=== PATIENT | female | born 1980 | race Caucasian/White ===

== ENCOUNTER 2016-10-25 13:54 | Emergency (ER) | payer MEDICAID ==
[~2016-10-25] VITALS: Ht 162.6 cm; Wt 65.0 kg
[~2016-10-25 13:54] MED LIST: PREN-39 PO
[2016-10-25 14:03] VITALS: Ht 162.6 cm; Wt 65.0 kg
--- NOTE | 2016-10-25 17:12 | ERD ---
ER Documentation Chief Complaint Date/Time DATE: 10/25/16 TIME: 17:09 Chief Complaint SENT BY OB 12 WEEKS ,UNABLE TO DETECT FHT HPI This is a 36-year-old female presenting to the emergency department for evaluation of . Patient was seen in her OB physician's office today and physician was unable to detect heart tones. Patient was told to go to the emergency room to have an ultrasound. Denies pelvic cramping or vaginal bleeding. Last menstrual period 07/03/16. A0. No dysuria or hematuria. No headache, nausea or vomiting. ROS All systems reviewed and are negative except as per history of present illness. Medications Home Meds Reported Medications Vits W-Ca,Fe,Fa(<1MG) ( Vitamins) 1 Tab Tablet, 1 TAB PO DAILY 04/18/12 Allergies Allergies: Coded Allergies: No Known Allergy (Verified Allergy, Mild, NONE, 11/20/08) PMhx/Soc History of Surgery: No Anesthesia Reaction: No Hx Neurological Disorder: No Hx Respiratory Disorders: No Hx Cardiac Disorders: No Hx Psychiatric Problems: No Hx Miscellaneous Medical Probl: No Hx Alcohol Use: No Hx Substance Use: No Hx Tobacco Use: No Physical Exam Vitals Vital Signs Date Time Temp Pulse Resp B/P Pulse Ox O2 Delivery O2 Flow Rate FiO2 10/25/16 18:48 98.2 75 18 114/60 98 Room Air 10/25/16 14:03 98.0 92 18 109/67 98 Physical Exam Const: No acute distress, alert Head: Atraumatic Eyes: Normal Conjunctiva ENT: Normal External Ears, Nose and Mouth. Neck: Full range of motion..~ No meningismus. Resp: Clear to auscultation bilaterally Cardio: Regular rate and rhythm, no murmurs Abd: Soft, non tender, non distended. Normal bowel sounds Skin: No petechiae or rashes Back: No midline or flank tenderness Ext: No cyanosis, or edema Neur: Awake and alert Psych: Normal Mood and Affect Result Diagram: 10/25/16 1100 Results 24 hrs Laboratory Tests Test 10/25/16 17:07 10/25/16 17:30 10/25/16 17:33 Basophils # 0.010^3/ul Basophils % 0.3% Beta HCG, Quantitative 433942.0mIU/ml Eosinophils # 0.110^3/ul Eosinophils % 1.5% Hematocrit 37.8% Hemoglobin 12.7g/dl Lymphocytes # 2.410^3/ul Lymphocytes % 25.0% Mean Corpuscular Hemoglobin 30.9pg Mean Corpuscular Hemoglobin Concent 33.7g/dl Mean Corpuscular Volume 91.8fl Mean Platelet Volume 8.7fl Monocytes # 0.710^3/ul Monocytes % 7.3% Neutrophils # 6.310^3/ul Neutrophils % 65.9% Nucleated Red Blood Cells # 0.010^3/ul Nucleated Red Blood Cells % 0.0/100WBC Platelet Count 02479^3/UL Red Blood Count 4.1210^6/ul Red Cell Distribution Width 13.2% White Blood Count 9.510^3/ul Bedside Urine Blood Negative Negative Bedside Urine Glucose (UA) Negative Negative Bedside Urine Ketones (LAB) Negative Negative Bedside Urine Leukocyte Esterase (L Negative Negative Bedside Urine Nitrite (LAB) Negative Negative Bedside Urine Protein (LAB) Negative Negative Bedside Urine pH (LAB) 7.0 7.0 Procedures/MDM ED COURSE: The patient was stable throughout ED course. I kept the patient and/or family informed of laboratory and diagnostic imaging results throughout the ED course. Laboratory CBC no significant anemia Beta-hCG 103,870 Type and Rh factor O+ urine dip negative Imaging OB ultrasound Patient: SANGITA DU : 1980 Age: 36 Sex: F MR #: [id number] DOS: 10/25/16 1652 Ordering MD: NEHA LAMBERT NP Location: [facility] Room/Bed: PROCEDURE: OBSTETRICAL ULTRASOUND WITH ENDOVAGINAL IMAGES CLINICAL INDICATION: Vaginal Bleed (), check heart rate TECHNIQUE: Multiple sonographic images of the pelvis were obtained utilizing a transabdominal and endovaginal technique. The images were reviewed on a PACS workstation. COMPARISON: None. LMP: 08/03/2016 FINDINGS: There is a single live intrauterine with heart rate of 179 beats per minute, mean sac diameter of 5.71 cm, and crown-rump length of 5.29 cm which is consistent with a gestational age of 12 weeks, 2 days . The estimated date of delivery by ultrasound is 05/07/2017 . The estimated gestational age by LMP is 11 weeks, 6 days . The estimated date of delivery by LMP is 05/10/2017 . The placenta is posterior. There is no evidence of a placental abruption or placenta previa. Bilateral ovaries are not visualized. There are no abnormal adnexal masses. No significant pelvic free fluid is identified. IMPRESSION: Single live intrauterine consistent with a gestational age of 12 weeks , 2 days . The estimated date of delivery is 05/07/2017 . Dating by ultrasound is within 3 days of dating by LMP. Bilateral ovaries are not visualized. There are no abnormal adnexal masses. MDM: This is a 36-year-old female presenting to the emergency department for evaluation of . Patient was sent by her OB physician because physician was unable to detect heart tones in office today. Patient denies any pelvic cramping or vaginal bleeding. Labs are unremarkable. Beta- hCG is 108,370. Urine is negative for infection. OB ultrasound reviewed by radiologist as single live intrauterine consistent with a gestational age of 12 weeks, 2 days . The estimated date of delivery is 05/07/2017 . Dating by ultrasound is within 3 days of dating by LMP. Bilateral ovaries are not visualized. There are no abnormal adnexal masses. Patient remains calm and comfortable throughout ED visit. Hemodynamically stable. Diagnosis is . Patient is appropriate for outpatient management. Instructed patient to follow- up with [facility] in the next 1-2 days for reassessment and additional management. Return to ED for any high fever, chest pain, difficulty breathing, shortness breath, wheezing, vomiting, diarrhea, abdominal pain or any new or worsening symptoms. Patient verbalizes understanding. All questions answered at discharge. Departure Diagnosis: Primary Impression: Weeks of gestation: 12 weeks Qualified Code: Z3A.12 - 12 weeks gestation of Condition: Stable NEHA LAMBERT NP Oct 25, 2016 17:12
[2016-10-25 17:24] LABS: BASOPHILS % 0.3 % (0.0-2.0); EOSINOPHILS # 0.1 10^3/ul (0.0-0.5); EOSINOPHILS % 1.5 % (0.0-7.0); HEMATOCRIT 37.8 % (37.0-47.0); HEMOGLOBIN 12.7 g/dl (12.0-16.0); LYMPHOCYTES # 2.4 10^3/ul (0.8-2.9); MEAN CORPUSCULAR HEMOGLOBIN 30.9 pg (29.0-33.0); MEAN CORPUSCULAR HGB CONC 33.7 g/dl (32.0-37.0); MEAN CORPUSCULAR VOLUME 91.8 fl (82.0-101.0); MEAN PLATELET VOLUME 8.7 fl (7.4-10.4); MONOCYTE # 0.7 10^3/ul (0.3-0.9); MONOCYTES % 7.3 % (0.0-11.0); NEUTROPHIL # 6.3 10^3/ul (1.6-7.5); NEUTROPHILS % 65.9 % (39.0-77.0); PLATELET COUNT 296 10^3/UL (140-440); RED BLOOD COUNT 4.12 10^6/ul (4.20-5.40); RED CELL DISTRIBUTION WIDTH 13.2 % (11.5-14.5); UNCORRECTED WBC 9.5 10^3/ul (4.8-10.8); WHITE BLOOD COUNT 9.5 10^3/ul (4.8-10.8)
[2016-10-25 17:25] LABS: CONDITION 1
[2016-10-25 17:29] LABS: URINE BLOOD (Dip) POC Negative (NEGATIVE)
[2016-10-25 17:32] LABS: URINE BLOOD (Dip) POC Negative (NEGATIVE)
--- NOTE | 2016-10-25 17:55 | RADRPT ---
PROCEDURE: OBSTETRICAL ULTRASOUND WITH ENDOVAGINAL IMAGES CLINICAL INDICATION: Vaginal Bleed (), check heart rate TECHNIQUE: Multiple sonographic images of the pelvis were obtained utilizing a transabdominal and endovaginal technique. The images were reviewed on a PACS workstation. COMPARISON: None. LMP: 08/03/2016 FINDINGS: There is a single live intrauterine with heart rate of 179 beats per minute, mean sa c diameter of 5.71 cm, and crown-rump length of 5.29 cm which is consistent with a gestational age o f 12 weeks, 2 days . The estimated date of delivery by ultrasound is 05/07/2017 . The estimated gestational age by LMP is 11 weeks, 6 days . The estimated date of delivery by LMP is 05/10/2017 . The placenta is posterior. There is no evidence of a placental abruption or placenta previa. Bilateral ovaries are not visualized. There are no abnormal adnexal masses. No significant pelvic free fluid is identified. IMPRESSION: Single live intrauterine consistent with a gestational age of 12 weeks, 2 days . The estimated date of delivery is 05/07/2017 . Dating by ultrasound is within 3 days of dating by LMP. Bilateral ovaries are not visualized. There are no abnormal adnexal masses. RPTAT: EE Physician Kiki Date Time Electronically viewed and signed by Physician Kiki on 10/25/2016 17:54 KVNG
[2016-10-25 18:48] VITALS: BP 114/60; PULSE 75; RESP 18; TEMP 98.2
== END 2016-10-25 18:41 | disposition home or self-care (01) ==
LOC: FTE 13:54
DX: Z34.91 Encounter for supervision of normal pregnancy, unspecified, first trimester (principal); Z3A.12 12 weeks gestation of pregnancy
CPT/HCPCS: 36415; 76801; 81003; 84702; 85025; 86900; 86901

== ENCOUNTER 2017-04-26 15:00 | Outpatient (CLI) | payer MEDICAID ==
[~2017-04-26] VITALS: Ht 154.9 cm; Wt 70.0 kg
[2017-04-26 15:55] VITALS: Ht 154.9 cm; Wt 70.0 kg
[2017-04-26 15:56] VITALS: BP 107/58; PULSE 71; RESP 18
--- NOTE | 2017-04-26 16:28 | RADRPT ---
PROCEDURE: OB ultrasound for biophysical profile CLINICAL INDICATION: labor TECHNIQUE: Multiple sonographic images of the pelvis were obtained. Transabdominal view of the gr avid uterus are available for review. The images were reviewed on a PACS workstation. COMPARISON: None FINDINGS: breathing movement = 2/2 tone = 2/2 motion = 2/2 JEN = 2/2 JEN = 17.6 cm Single live intrauterine with cardiac activity. heart rate equals 152 beats p er minute. Presentation is cephalic. The placenta is posterior fundal. IMPRESSION: 1. Single viable intrauterine gestation. 2. Biophysical profile = 8. 3. JEN = 17.6 cm. RPTAT: KK .Tonny Henriquez MD, MD Date Time Electronically viewed and signed by .Tonny Henriquez MD, MD on 04/26/2017 16:27 .B/
--- NOTE | 2017-04-26 16:29 | RADRPT ---
PROCEDURE: US OB - Limited weight. CLINICAL INDICATION: labor TECHNIQUE: Multiple sonographic images of the pelvis were obtained. Transabdominal imaging only w as performed. The images were reviewed on a PACS workstation. COMPARISON: No prior studies are available for comparison. FINDINGS: There is a single viable intrauterine gestation. Cardiac activity is present with 157 beats per min miryam. There is a cephalic presentation. Measurements were made in order to determine age. The results are as follows: BPD = 8.67 cm HC = 31.99 cm AC = 32.23 cm FL = 7.20 .cm Estimated gestational age of approximately 36 weeks 2 days +/ - 2 weeks 4 days by ultrasound evalua tion The estimated date of delivery is 05/22/2017 by ultrasound evaluation. The EFW = 3007 g +/- 451 g. The placenta is posterior fundal. IMPRESSION: 1. Single viable intrauterine gestation of approximately 36 weeks 2 days with estimated date of [place] of 05/22/2017 by ultrasound evaluation. 2. The estimated weight is 3007 g (29%) . RPTAT: KK .Tonny Henriquez MD, MD Date Time Electronically viewed and signed by .Tonny Henriquez MD, MD on 04/26/2017 16:29 .B/
[2017-04-26] MEDS ORDERED: GLYB1.252 PO (17:00)
--- NOTE | 2017-04-26 17:10 | CONS ---
Date/Time of Note Date/Time of Note DATE: 04/26/17 TIME: 17:00 Consultation Date/Type/Reason Admit Date/Time April 26, 2017 OB triage consult Reason for Consultation This patient is a 37 years old 3 para 3 who had all her 3 children by section. She came to the triage area to rule out labor she is a gestational diabetes mellitus controlled by diet as well as medication she is on glyburide 1.5 mg per day her lab works were so full normal blood type O Rh+ hepatitis B surface antigen and HIV RPR GBS chlamydia and gonorrhea were all negative on examination she is a well-developed well-nourished lady near term. Very irregular and scattered contraction. heart tone is normal On general examination her vital signs are normal with blood pressure of 107/58 pulse rate of 71 respiration 18 temperature 98.7,,,. heartbeats were around 140 bpm we did a pelvic examination the cervix was closed thick and head was high membranes were intact Constitutional: No chills, No diaphoresis, No disoriented, No febrile, No improved, No no complaints, No other, No poor po, No requiring IVF, No requiring O2 ENT: No bleeding, No congestion, No discharge, No dysphagia, No no complaints, No other, No pain, No sore throat Respiratory: No cough, No no complaints, No other, No pain, No pleuritic pain, No shortness of breath, No sputum, No wheezing Cardiovascular: No chest pain, No edema, No lightheadedness, No no complaints, No orthopenea, No other, No palpitations, No paroxysmal nocturnal dyspnea Gastrointestinal: No blood, No constipation, No decreased appetite, No diarrhea , No flatus, No nausea, No no complaints, No other, No pain, No passing stool, No vomiting Genitourinary: hematuria (As I mentioned the cervix was basically closed no sign of labor), No bleeding, No discharge, No dysuria, No flank pain, No no complaints, No other Musculoskeletal: No back pain, No bone/joint pain, No neck pain, No no complaints, No other, No restricted range of motion, No swelling Skin: No bruising, No erythema, No laceration, No no complaints, No other, No pruritis, No rash, No skin lesions Neurologic: other (Knee-jerk reflexes normal), No confusion, No dizziness, No focal-weakness, No headache, No no complaints , No seizure, No syncope Endocrine: No dry skin, No no complaints, No other, No polydypsia, No polyuria , No temp intolerance Additional Comments On ultrasound study the report is single live intrauterine with heart rate of 152/min vertex presentation placenta was fundal her biophysical 4 was reported 05/03 amniotic fluid index was reported to 17.6 cm estimated weight was 3007 g 451 g which placed her at 29% Disposition. These finding patient was discharged home to continue doing kick count and to return to clinic for follow-up she will undergo a section a week later.' She is advised to return to labor delivery room with triage area in case of contractions bleeding or rupture of the membrane Social History Smoking Status: Never smoker Exam/Review of Systems Vital Signs Vitals Vital Signs Date Time Temp Pulse Resp B/P Pulse Ox O2 Delivery O2 Flow Rate FiO2 04/26/17 15:56 98.7 71 18 107/58 Room Air BROOKLYN HUDSON MD Apr 26, 2017 17:10
--- NOTE | 2017-04-26 17:30 | TRIAGE ---
OB Triage Datetime Report Generated by CPN: 04/26/2017 17:30 Datetime: 04/26/2017 16:22 Heart Rate Comments: "PT STATES THE BABY IS MOVING ALOT " Datetime: 04/26/2017 16:19 Time of Arrival: 04/26/2017 14:46 EGA: 38.0 Arrived By: Ambulatory Arrived From: Home Chief Complaint: R/O LABOR PREV C/S X3 Movement: Present Contractions: Irregular Rupture of Membranes: Denies Vaginal Bleeding: None Vaginal Discharge: Denies Recent Sexual Intercouse: Denies Abdominal Trauma: Not Applicable Time Provider Notified: 04/26/2017 16:00 Provider Notified: GHAYOORI Initial Plan: NST Datetime: 04/26/2017 16:13 Assessment Type: Triage Maternal Assessment Level of Consciousness: Fully Conscious DTR's/Clonus: DTRs 2+; No Clonus Headache: Denies Blurred Vision: No Respiratory Effort: Unlabored; Regular Rhythm; Equal Expansion Breath Sounds, Left: Clear and Equal Breath Sounds, Right: Clear and Equal Nausea/Vomiting: Denies RUQ Epigastric Pain: Denies Lower Extremities Edema: None Degree: None Upper Extremities Edema: None Degree: None Facial Edema: None Fall Risk Assessment History of Falling: (0) No Secondary Diagnosis: (0) No Ambulatory Aid: (0) Bedrest/Nurse Assist IV Therapy: (0) No Gait: (0) Normal/Bedrest/Immobile Mental Status: (0) Oriented to Own Ability Fall Score: 0 Fall Risk Score Definition: No Risk: No action required Datetime: 04/26/2017 16:00 Stage of : OB Triage Assessment Type: Triage Maternal Assessment Level of Consciousness: Fully Conscious DTR's/Clonus: DTRs 2+; No Clonus Headache: Denies Blurred Vision: No Respiratory Effort: Unlabored; Regular Rhythm; Equal Expansion Breath Sounds, Left: Clear and Equal Breath Sounds, Right: Clear and Equal Nausea/Vomiting: Denies RUQ Epigastric Pain: Denies Lower Extremities Edema: None Degree: None Upper Extremities Edema: None Degree: None Facial Edema: None Temperature Route: Axillary Fall Risk Assessment History of Falling: (0) No Secondary Diagnosis: (0) No Ambulatory Aid: (0) Bedrest/Nurse Assist IV Therapy: (0) No Gait: (0) Normal/Bedrest/Immobile Mental Status: (0) Oriented to Own Ability Fall Score: 0 Fall Risk Score Definition: No Risk: No action required Pain Assessment Pain Scale: 5 Pain Presence: Intermittent Pain Type: Contraction Pain Location: Abdomen; Back Pain Goal: 2 Pain Relief Measures: Comfort Measures Pain Assessment Comments: Vaginal Exam Dilatation (cms): 0.0 Effacement (%): 0 Station: -3 Exam By: ogbodu Membrane Status: Intact Datetime: 04/26/2017 15:58 Heart Rate Comments: ultrasound at the bedside
== END 2017-04-26 17:00 | disposition home or self-care (01) ==
LOC: OBT 15:00 → L-D 15:04 → OBT 17:00
PROVIDERS: ATTEND Obstetrics & Gynecology
DX: O24.410 Gestational diabetes mellitus in pregnancy, diet controlled (principal); O09.523 Supervision of elderly multigravida, third trimester; Z3A.38 38 weeks gestation of pregnancy; O34.219 Maternal care for unspecified type scar from previous cesarean delivery
CPT/HCPCS: 76815; 76818; Z7500; G0463

== ENCOUNTER 2017-05-02 12:31 | Inpatient (IN) | payer MEDICAID ==
[~2017-05-02] VITALS: Ht 152.4 cm; Wt 68.6 kg
[~2017-05-02 12:31] MED LIST changes: +GLYB1.252 PO
[2017-05-02 13:11] VITALS: Ht 152.4 cm; Wt 68.6 kg
[2017-05-02 13:12] VITALS: BP 102/56; PULSE 70; RESP 18
[2017-05-02] MEDS ORDERED: LACTATED RINGER'S 1,000 ML IV SCH (13:20)
[2017-05-02] MEDS ORDERED: OXYTOCIN 30 UNITS/LR 500 ML IV SCH ×2 (13:30)
[2017-05-02] MEDS ORDERED: OXYTOCIN 30 UNITS/LR 500 ML IV PRN ×2 (13:30→21:30)
[2017-05-02] MEDS ORDERED: CARBOPROST 250 MCG INJ IM PRN ×2 (13:30→21:30)
[2017-05-02] MEDS ORDERED: MISOPROSTOL 200 MCG TAB PR PRN ×2 (13:30→21:30)
[2017-05-02] MEDS ORDERED: LIDOCAINE 1% (MPF) 30 ML INJ INJ PRN (13:30)
[2017-05-02] MEDS ORDERED: METHYLERGONOVINE 0.2 MG INJ IM PRN ×2 (13:30→21:30)
[2017-05-02] MEDS ORDERED: CEFAZOLIN 2 GM/50 ML (PMX) 50 ML IVPB ONE (13:30)
[2017-05-02 13:52] LABS: BASOPHILS % 0.1 % (0.0-2.0); EOSINOPHILS % 0.4 % (0.0-7.0); HEMATOCRIT 33.3 % (37.0-47.0); HEMOGLOBIN 11.7 g/dl (12.0-16.0); LYMPHOCYTES # 1.8 10^3/ul (0.8-2.9); LYMPHOCYTES % 22.7 % (15.0-51.0); MEAN CORPUSCULAR HEMOGLOBIN 32.4 pg (29.0-33.0); MEAN CORPUSCULAR HGB CONC 35.1 g/dl (32.0-37.0); MEAN CORPUSCULAR VOLUME 92.2 fl (82.0-101.0); MONOCYTE # 0.5 10^3/ul (0.3-0.9); MONOCYTES % 6.1 % (0.0-11.0); NEUTROPHIL # 5.5 10^3/ul (1.6-7.5); NEUTROPHILS % 69.9 % (39.0-77.0); PLATELET COUNT 209 10^3/UL (140-415); RED BLOOD COUNT 3.61 10^6/ul (4.20-5.40); RED CELL DISTRIBUTION WIDTH 13.1 % (11.5-14.5); WHITE BLOOD COUNT 7.9 10^3/ul (4.8-10.8)
[2017-05-02] MEDS ORDERED: LACTATED RINGER'S 1,000 ML IV PRN (14:00)
[2017-05-02] MEDS ORDERED: LACTATED RINGER'S 1,000 ML IV ONE (14:09)
[2017-05-02 14:14] LABS: INR 0.85; PROTIME 11.6 Sec (12.2-14.2); PT RATIO 0.9
[2017-05-02 14:15] LABS: PARTIAL THROMBOPLASTIN TIME 27.5 Sec (25.0-35.0)
[2017-05-02] MEDS ORDERED: CITRIC ACID/NA CITRATE 30 ML CUP PO ONE (14:30)
[2017-05-02] MEDS ORDERED: ONDANSETRON 4 MG INJ IV ONE (14:30)
[2017-05-02] MEDS ORDERED: FENTAnyl 50 MCG/ML VIAL ONE (15:03)
[2017-05-02] MEDS ORDERED: morphine SULFATE/PF (10 MG/10 ML) INJ ONE (15:04)
[2017-05-02] MEDS ORDERED: METOCLOPRAMIDE 10 MG INJ ONE (15:15)
[2017-05-02] MEDS ORDERED: PHENYLephrine (100 MCG/ML) 5ML SYG ONE (15:34)
[2017-05-02] MEDS ORDERED: EPHEDrine SULFATE 50 MG/5 ML SYG ONE (15:36)
[2017-05-02] MEDS ORDERED: NALBUPHINE HCL (10 MG/1 ML) INJ IV PRN (16:00)
[2017-05-02] MEDS ORDERED: TRIMETHOBENZAMIDE 100 MG/ML VIAL IM PRN (16:00)
[2017-05-02] MEDS ORDERED: NALOXONE (0.4 MG/ML) INJ IV PRN (16:00)
[2017-05-02] MEDS ORDERED: morphine 4 MG/ML VIAL IV PRN (16:00)
[2017-05-02] MEDS ORDERED: morphine 2 MG INJ IV PRN (16:00)
[2017-05-02] MEDS ORDERED: ONDANSETRON 4 MG INJ IV PRN (16:00)
--- NOTE | 2017-05-02 16:12 | HP ---
Date/Time of Note Date/Time of Note DATE: 05/02/17 TIME: 16:10 OB - History Hx of Present Free Text/Dictation @38+6 wks GA in labor 3 previous c/section +Bilateral tubal ligation : 4 Para: 3 Care: Good Care Ultrasounds: Normal mid trimester US Obstetrical Complications: None Medical Complications: None Past Family/Social History * Past Medical, Surgical, Family and Obstetric Histories reviewed from chart. OB Admission Exam Vital Signs Vital Signs Vital Signs Date Time Temp Pulse Resp B/P Pulse Ox O2 Delivery O2 Flow Rate FiO2 05/02/17 13:12 98.2 70 18 102/56 Room Air Physical Exam Abdomen: WNL Extremities: Normal Reflexes: Normal Cervical Dilatation: 2cm Effacement: 50% Station: -1 Membranes: Intact Heart Rate: 140's Accelerations: Accelerations Present Decelerations: No Decelerations Varibility: Moderate Contractions on Admission: 6-10 Minutes Apart Last 72 hours Lab Results CBC & BMP 05/02/17 13:35 OB Assessment/Plan Reason for admission: section Plan: Section Other plan: @38+6 wks GA in labor 3 previous c/section +Bilateral tubal ligation JESSICA PARRISH M.D. May 02, 2017 16:12
--- NOTE | 2017-05-02 16:14 | OPR ---
Operative Report Planned Procedure Free Text/Dictation @38+6 wks GA in labor 3 previous c/section +Bilateral tubal ligation Procedure date May 02, 2017 Procedure(s) repeat c/section +Bilateral tubal ligation Performed by: JESSICA PARRISH M.D. Assisting provider: ROSMERY GONZALEZ MD Pre-procedure diagnosis @38+6 wks GA in labor 3 previous c/section +Bilateral tubal ligation Anesthesia Type: spinal Procedure Description Under satisfactory [] anesthesia, the patient was prepped and draped and placed in a supine position, tilted to the left. Pfannenstiel incision was made, carried through the subcutaneous tissue. Bleeders brought under control with electrocautery. Fascia incised to the length of the incision. Rectus muscles from the fascia, divided midline. Peritoneum exposed, entered through a transverse incision. Exploration of abdomen revealed gravid uterus. Bladder flap was developed. Transverse incision was made in the lower segment of the uterus. Amniotic sac ruptured. [] amniotic fluid noted. [] Nasal oropharyngeal suction was performed. The baby was handed to the team for immediate attention. The placenta was delivered manually intact. Uterine cavity was cleaned with wet sponge and drainage established. Uterus closed in 2 layers using [] in continuous fashion. Peritoneal cavity irrigated with warm saline. The right tube were identified and cut and sutured in midportion using a jesus method,Same was done on the other tube.Sponge, needle and instrument count reported to be correct. Abdominal peritoneum closed with [] continuously. Rectus muscle approximated with []. Fascia closed with [], and skin closed with libia. Estimated blood loss [600cc]mL. Urine bag contained []mL of urine Post-Procedure Findings: Live Baby [], Apgars [] and [], weight [], position [], [] presentation []cord. Specimen removed: Yes Complications: None Pt Condition post procedure: stable Disposition: PACU Physician Certification I, the undersigned physician, hereby certify that I have discussed the procedure described in this consent form with this patient (or the patient's legal community health program representative), including: * The risk and benefits of the procedure; * Any adverse reactions that may reasonably be expected to occur; * Any alternative efficacious methods of treatment which may be medically viable ; * The potential problems that may occur during recuperation; * Potential for blood transfusion and associated risks/benefits; and * Any research or economic interest I may have regarding this treatment. I further certify that the patient/legally responsible person was encouraged to ask question and that all questions were answered. JESSICA PARRISH M.D. May 02, 2017 16:14
--- NOTE | 2017-05-02 16:15 | OPR ---
Date/Time of Note Date/Time of Note DATE: 05/02/17 TIME: 16:14 Operative Report Free Text/Dictation @38+6 wks GA in labor 3 previous c/section +Bilateral tubal ligation Preoperative Diagnosis @38+6 wks GA in labor 3 previous c/section +Bilateral tubal ligation Postoperative Diagnosis @38+6 wks GA in labor 3 previous c/section +Bilateral tubal ligation Operation/Procedure Performed Repeat c/section +Jg;ateral tubal ligation Surgeon: JESSICA PARRISH M.D. Co-Surgeon: ROSMERY GONZALEZ MD Anesthesia Type: spinal Estimated Blood Loss: other Transfusion Required: no Specimen: none Grafts/Implants: none Complications: no JESSICA PARRISH M.D. May 02, 2017 16:15
[2017-05-02 20:45] VITALS: BP 113/54; PULSE 72; RESP 18
[2017-05-02] MEDS: DIPHENHYDRAMINE 50 MG INJ IV PRN (21:14)
[2017-05-02] MEDS: KETOROLAC 30 MG INJ IV PRN (21:14)
[2017-05-02] MEDS ORDERED: SENNA/DOCUSATE NA (8.6MG/50MG) TAB PO PRN (21:30)
[2017-05-02] MEDS ORDERED: LANOLIN 7 GM TUBE TOP PRN (21:30)
[2017-05-02] MEDS ORDERED: BENZOCAINE 20% 56 ML SPRAY TOP PRN (21:30)
[2017-05-02] MEDS ORDERED: WITCH HAZEL/GLYCERIN PAD PR PRN (21:30)
[2017-05-02] MEDS ORDERED: ZOLPIDEM 5 MG TAB PO PRN (21:30)
[2017-05-03 00:15] VITALS: BP 99/52; PULSE 77; RESP 17
[2017-05-03] MEDS: LACTATED RINGER'S 1,000 ML IV* SCH ×2 (00:56→16:30)
[2017-05-03 03:30] VITALS: BP 94/54; PULSE 78; RESP 18
[2017-05-03] MEDS: DIPHENHYDRAMINE 50 MG INJ IV PRN (05:37)
[2017-05-03] MEDS: IBUPROFEN 600 MG TAB PO SCH ×3 (08:07→23:55)
[2017-05-03 08:20] VITALS: BP 109/63; PULSE 75; RESP 19
[2017-05-03] MEDS: SENNA/DOCUSATE NA (8.6MG/50MG) TAB PO SCH ×2 (08:54→21:17)
[2017-05-03 09:10] LABS: BASOPHILS % 0.1 % (0.0-2.0); EOSINOPHILS % 0.2 % (0.0-7.0); HEMATOCRIT 32.2 % (37.0-47.0); HEMOGLOBIN 11.3 g/dl (12.0-16.0); LYMPHOCYTES # 1.3 10^3/ul (0.8-2.9); MEAN CORPUSCULAR HEMOGLOBIN 32.5 pg (29.0-33.0); MEAN CORPUSCULAR HGB CONC 35.1 g/dl (32.0-37.0); MEAN CORPUSCULAR VOLUME 92.5 fl (82.0-101.0); MONOCYTE # 0.6 10^3/ul (0.3-0.9); MONOCYTES % 5.6 % (0.0-11.0); NEUTROPHIL # 9.1 10^3/ul (1.6-7.5); NEUTROPHILS % 81.6 % (39.0-77.0); PLATELET COUNT 191 10^3/UL (140-415); RED BLOOD COUNT 3.48 10^6/ul (4.20-5.40); RED CELL DISTRIBUTION WIDTH 13.1 % (11.5-14.5); WHITE BLOOD COUNT 11.1 10^3/ul (4.8-10.8)
[2017-05-03] MEDS: KETOROLAC 30 MG INJ IV PRN (10:38)
[2017-05-03 12:25] VITALS: BP 95/51; PULSE 63; RESP 18
[2017-05-03 16:22] VITALS: BP 95/58; PULSE 78; RESP 18
[2017-05-03 19:45] VITALS: BP 99/62; PULSE 80; RESP 18
[2017-05-03] MEDS: OXYCODONE/ASPIRIN (4.88/325) TAB PO PRN (21:43)
[2017-05-04 04:15] VITALS: BP 92/54; PULSE 64; RESP 18
[2017-05-04] MEDS: IBUPROFEN 600 MG TAB PO SCH ×3 (05:41→17:39)
[2017-05-04 08:55] VITALS: BP 100/68; PULSE 73; RESP 18
[2017-05-04] MEDS ORDERED: DIPHTH/TET/ACEL PERTUSS (ADULT) 0.5 ML VIAL IM* ONE (09:00)
--- NOTE | 2017-05-04 09:50 | QN ---
Documentation Comment Late Entry Note: POD#1 is stable afebrile tolerates diet No VB +Flatus Adequate urien VS stable Gen NAD Abd soft NT ND Incision intact Genitalai No blood at perinium --->discharge plan tomorrow --->ambulation JESSICA PARRISH M.D. May 04, 2017 09:50
--- NOTE | 2017-05-04 09:51 | QN ---
Documentation Comment POD#2is stable afebrile tolerates diet No VB +BM +voids VS stable Gen NAD Abd soft NT ND Incision intact Genitalai No blood at perinium --->discharge plan tomorrow --->ambulation JESSICA PARRISH M.D. May 04, 2017 09:51
--- NOTE | 2017-05-04 09:56 | DS ---
Date/Time of Note Date/Time of Note DATE: 05/04/17 TIME: 09:52 Discharge Summary Admission/Discharge Info Admit Date/Time May 02, 2017 at 12:31 Discharge Date/Time Apr Discharge Diagnosis Post c/section Patient Condition: Good Procedures Repeat c/section Hospital Course uneventful Home Meds Reported Medications Glyburide* (Glyburide*) 1.25 Mg Tablet, 1.25 MG PO DAILY, #30 TAB 04/26/17 Vits W-Ca,Fe,Fa(<1MG) ( Vitamins) 1 Tab Tablet, 1 TAB PO DAILY 04/18/12 Primary Care Provider Care Physician No Primary Pending Labs Laboratory Tests Test 05/03/17 10:27 05/03/17 14:41 05/03/17 21:57 05/04/17 08:11 Bedside Glucose 106mg/dL (70-220) 86mg/dL (70-220) 96mg/dL (70-220) 81mg/dL (70-220) JESSICA PARRISH M.D. May 04, 2017 09:56
[2017-05-04] MEDS: SENNA/DOCUSATE NA (8.6MG/50MG) TAB PO SCH ×2 (10:11→20:41)
[2017-05-04 12:40] VITALS: BP 103/67; PULSE 69; RESP 19
[2017-05-04] MEDS: OXYCODONE/ASPIRIN (4.88/325) TAB PO PRN (16:48)
[2017-05-04 16:50] VITALS: BP 106/64; PULSE 64; RESP 18
[2017-05-04 20:00] VITALS: BP 104/70; PULSE 67; RESP 18
[2017-05-05] MEDS: IBUPROFEN 600 MG TAB PO SCH ×3 (00:14→11:54)
[2017-05-05 03:45] VITALS: BP 100/85; PULSE 71; RESP 18
--- NOTE | 2017-05-05 06:44 | QN ---
Documentation Comment Late entry note for exam done prior to midnight on 05/04/2017 called by RN to evaluate the area of ? Hematoma on the abdominal wall. Attended to the patient bedside . Patient concerned about an area of ecchymosis over the abdomen below the umbilicus and above the scar. Denies any tenderness or pain or discomfort in the area. Noted there is ecchymosis after the dressing was off. She is a status post . Denies any other complaint. Pain in the incision well controlled with p.o. pain medication Physical examination: incision: Clean dry and intact An area of ecchymosis below the umbilicus and above the scar measuring about 9-7 cm. Exam consistent with hematoma and subcutaneous area or above fashion. Area is not organized well. . Area of concern is not unusually tender. appropriate tenderness in the incision noted related to Recommended the nursing to use the ice pack and have a binder Area of concern was marked Nursing staff educated to report any expanding beyond the margins Primary attending Dr. Mcgee notified to see the patient tomorrow VALENCIA CANNON MD May 05, 2017 06:44
[2017-05-05 08:00] VITALS: BP 100/66; PULSE 64; RESP 18
[2017-05-05] MEDS: SENNA/DOCUSATE NA (8.6MG/50MG) TAB PO SCH (09:00)
[2017-05-05] MEDS ORDERED: DIPHTH/TET/ACEL PERTUSS (ADULT) 0.5 ML VIAL IM* ONE (10:00)
--- NOTE | 2017-05-05 11:39 | DS ---
Date/Time of Note Date/Time of Note DATE: 05/05/17 TIME: 11:32 Obstetrical Discharge Record Final Diagnosis Final Diagnosis: Term delivered Section Section: Repeat Primary Indication Repeat C Section plus BTL Complications Augmentation: No Induction: No Condition on Discharge Physical Assessment Voiding: Yes Bowel Movement: Yes Breast: Soft, non-tender Fundus: Firm Abdomen and Incision: healing well Episiotomy: Post C section day 3 Doing Well Afebrile Ambulatory Chest Clear Breasts are soft , Nipples are intact Abdomen is soft Fundus is firm Moderate amount of lochia Incision is clean ,No evidence of infection No calf tenderness No ankle edema Current Medications Medications (Trade) Dose Ordered Sig/Pedro Route PRN Reason Start Time Stop Time Status Last Admin Dose Admin Cefazolin Sodium/ Dextrose 50 ml @ 100 mls/hr ONCE ONCE IVPB 05/02/17 13:30 05/02/17 13:59 DC Lactated Ringer's (Lr) 1,000 ml @ 125 mls/hr Q8H IV 05/02/17 13:20 05/02/17 21:08 DC 05/02/17 13:45 Lidocaine 30 ml 30 ml ONCE PRN INJ EPISIOTOMY/TEARING 05/02/17 13:30 05/02/17 21:08 DC Oxytocin/Lactated Ringer's 500 ml @ 125 mls/hr ONCE -MAY REPEAT X1 IV 05/02/17 13:30 05/02/17 21:08 DC 05/02/17 16:15 Oxytocin/Lactated Ringer's 500 ml @ 125 mls/hr ONCE IV 05/02/17 13:30 05/02/17 21:08 DC Lactated Ringer's 1,000 ml @ 2,000 mls/hr Q30M PRN IV PRE-EPIDURAL BOLUS 05/02/17 14:00 05/02/17 21:08 DC 05/02/17 14:56 Oxytocin/Lactated Ringer's 500 ml @ 0 mls/hr ONCE PRN IV For Hemorrhage Management 05/02/17 13:30 05/02/17 21:08 DC Methylergonovine Maleate (Methergine) 0.2 mg ONCE PRN IM VAGINAL BLEEDING 05/02/17 13:30 05/02/17 21:09 DC Carboprost Tromethamine (Hemabate) 250 mcg ONCE PRN IM VAGINAL BLEEDING 05/02/17 13:30 05/02/17 21:09 DC Misoprostol 1000 mcg 1,000 mcg ONCE PRN OR VAGINAL BLEEDING 05/02/17 13:30 05/02/17 21:09 DC Lactated Ringer's (Lr) 1,000 ml @ 1,000 mls/hr Q1H ONCE IV 05/02/17 14:09 05/02/17 15:08 DC 05/03/17 08:55 Ondansetron HCl (Zofran Inj) 4 mg pre-procedure ONCE IV 05/02/17 14:30 05/02/17 14:31 DC 05/02/17 14:45 Citric Acid/ Sodium Citrate (Bicitra) 30 ml PRE-OP ONCE PO 05/02/17 14:30 05/02/17 14:31 DC 05/02/17 14:45 Fentanyl (Sublimaze) 100 mcg STK-MED ONCE .ROUTE 05/02/17 15:03 05/02/17 15:04 DC Morphine Sulfate (Duramorph) 10 mg STK-MED ONCE .ROUTE 05/02/17 15:04 05/02/17 15:05 DC Metoclopramide HCl (Reglan) 10 mg STK-MED ONCE .ROUTE 05/02/17 15:15 05/02/17 15:16 DC Phenylephrine HCl (Malcom-Synephrine Inj Syg) 500 mcg STK-MED ONCE .ROUTE 05/02/17 15:34 05/02/17 15:35 DC Ephedrine Sulfate 50 mg STK-MED ONCE .ROUTE 05/02/17 15:36 05/02/17 15:37 DC Naloxone HCl (Narcan) 0.1 mg Q2M PRN IV FOR RESP RATE 8 OR LESS 05/02/17 16:00 05/02/17 21:09 DC Ketorolac Tromethamine (Toradol) 30 mg Q6H PRN IV PAIN 05/02/17 16:00 05/03/17 15:59 DC 05/03/17 10:38 Morphine Sulfate (morphine) 2 mg Q3H PRN IV PAIN LEVEL 1-5 05/02/17 16:00 05/03/17 15:59 DC Morphine Sulfate (morphine) 4 mg Q3H PRN IV PAIN LEVEL 6-10 05/02/17 16:00 8/8/17 15:59 DC Diphenhydramine HCl (Benadryl) 25 mg Q6H PRN IV ITCHING 05/02/17 16:00 05/03/17 15:59 DC 05/03/17 05:37 Nalbuphine HCl (Nubain) 5 mg ONCE PRN IV ITCHING 05/02/17 16:00 05/03/17 15:59 DC Ondansetron HCl (Zofran Inj) 4 mg Q6H PRN IV NAUSEA AND/OR VOMITING 05/02/17 16:00 05/03/17 15:59 DC Trimethobenzamide HCl (Tigan) 200 mg Q6H PRN IM NAUSEA AND/OR VOMITING 05/02/17 16:00 05/03/17 15:59 DC Miscellaneous Information Duramorph: 0.2 mg Spi... GIVEN XX 05/02/17 16:00 05/02/17 21:09 DC Lactated Ringer's (Lr) 1,000 ml @ 125 mls/hr Q8H IV* 05/02/17 21:07 05/03/17 18:40 DC 05/03/17 00:56 Ibuprofen (Motrin) 600 mg Q6 PO 05/03/17 12:00 05/05/17 05:43 Oxycodone/Aspirin (Percodan) 2 tab Q3H PRN PO PAIN LEVEL 6-10 05/02/17 21:30 05/04/17 16:48 Zolpidem Tartrate (Ambien) 5 mg QHS PRN PO INSOMNIA 05/02/17 21:30 Senna/Docusate Sodium (Senokot-S) 1 tab BID PO 05/03/17 09:00 05/04/17 10:11 Senna/Docusate Sodium (Senokot-S) 1 tab BID PRN PO CONSTIPATION 05/02/17 21:30 Witch Jayde/ Glycerin (Tucks Pads) 1 pad BEDSIDE MEDICATION PRN OR HEMORRHOID/EPISIOTMY PAIN 05/02/17 21:30 Benzocaine (Dermoplast Stevinson) 1 spray BEDSIDE MEDICATION PRN TOP HEMORRHOID/EPISIOTMY PAIN 05/02/17 21:30 Lanolin ([id number]) 1 applic BEDSIDE MEDICATION PRN TOP BEDSIDE FOR JUAN TO NIPPLES 05/02/17 21:30 05/04/17 12:34 Diphtheria/ Tetanus/Acell Pertussis 0.5 ml 0.5 ml ONCE ONCE IM* 05/04/17 09:00 05/04/17 09:01 Cancel Oxytocin/Lactated Ringer's 500 ml @ 0 mls/hr ONCE PRN IV For Hemorrhage Management 05/02/17 21:30 Methylergonovine Maleate (Methergine) 0.2 mg ONCE PRN IM VAGINAL BLEEDING 05/02/17 21:30 Carboprost Tromethamine (Hemabate) 250 mcg ONCE PRN IM VAGINAL BLEEDING 05/02/17 21:30 Misoprostol (Cytotec) 1,000 mcg ONCE PRN OR VAGINAL BLEEDING 05/02/17 21:30 Diphtheria/ Tetanus/Acell Pertussis (Adacel) 0.5 ml ONCE ONCE IM* 05/05/17 10:00 05/05/17 10:01 DC New born is doing well, Breast feeding Calf Tenderness: No Patient Condition: Good BROOKLYN HUDOSN MD May 05, 2017 11:39
[2017-05-06] MEDS ORDERED: CEPH-443 PO (23:08)
== END 2017-05-05 15:28 | disposition home or self-care (01) | DRG 766 ==
LOC: L-D 12:31 → PP1 20:37
PROVIDERS: ADMIT Obstetrics & Gynecology; ATTEND Obstetrics & Gynecology
PROC: 0UL70ZZ Occlusion of Bilateral Fallopian Tubes, Open Approach (ICD-10-PCS; 2017-05-02)
PROC: 3E033VJ Introduction of Other Hormone into Peripheral Vein, Percutaneous Approach (ICD-10-PCS; 2017-05-02)
PROC: 10D00Z1 Extraction of Products of Conception, Low, Open Approach (ICD-10-PCS; principal; 2017-05-02 14:00)
DX: O34.211 Maternal care for low transverse scar from previous cesarean delivery (principal); O24.429 Gestational diabetes mellitus in childbirth, unspecified control; Z30.2 Encounter for sterilization; Z3A.38 38 weeks gestation of pregnancy; Z37.0 Single live birth
CPT/HCPCS: 82962; 85025; 85610; 85730; 86592; 86706; 86850; 86900; 86901; 86920; 87340; 88302; 90715; 94760; 99464; J0690; J1200; J1885; J2274; J2370; J2405; J2590; J2765; J3010; J7120

== ENCOUNTER 2017-05-06 19:54 | Emergency (ER) | payer MEDICAID ==
[~2017-05-06] VITALS: Ht 152.4 cm; Wt 66.5 kg
[2017-05-06 19:55] VITALS: Ht 152.4 cm; Wt 66.5 kg
[2017-05-06 21:33] LABS: BASOPHILS % 0.1 % (0.0-2.0); EOSINOPHILS # 0.2 10^3/ul (0.0-0.5); EOSINOPHILS % 3.3 % (0.0-7.0); HEMOGLOBIN 11.4 g/dl (12.0-16.0); LYMPHOCYTES % 29.1 % (15.0-51.0); MEAN CORPUSCULAR HEMOGLOBIN 32.2 pg (29.0-33.0); MEAN CORPUSCULAR HGB CONC 34.5 g/dl (32.0-37.0); MEAN CORPUSCULAR VOLUME 93.2 fl (82.0-101.0); MEAN PLATELET VOLUME 10.7 fl (7.4-10.4); MONOCYTE # 0.5 10^3/ul (0.3-0.9); MONOCYTES % 7.1 % (0.0-11.0); NEUTROPHIL # 4.1 10^3/ul (1.6-7.5); NEUTROPHILS % 59.7 % (39.0-77.0); PLATELET COUNT 284 10^3/UL (140-415); RED BLOOD COUNT 3.54 10^6/ul (4.20-5.40); RED CELL DISTRIBUTION WIDTH 12.8 % (11.5-14.5); WHITE BLOOD COUNT 6.9 10^3/ul (4.8-10.8)
[2017-05-06 21:44] LABS: ADD UMIC YES; UR ASCORBIC ACID NEGATIVE (NEGATIVE); UR BILIRUBIN (Dip) NEGATIVE (NEGATIVE); UR BLOOD (Dip) 2+ mg/dL (NEGATIVE); UR CLARITY SLIGHTLY CLOUDY (CLEAR); UR COLOR YELLOW (YELLOW); UR GLUCOSE (Dip) NEGATIVE (NEGATIVE); UR KETONES (Dip) NEGATIVE (NEGATIVE); UR LEUKOCYTE ESTERASE (Dip) NEGATIVE Leu/ul (NEGATIVE); UR NITRITE (Dip) NEGATIVE (NEGATIVE); UR RBC 6 /HPF (0-5); UR SPECIFIC GRAVITY (Dip) 1.016 (1.003-1.030); UR SQUAMOUS EPITHELIAL CELL FEW /HPF (FEW); UR TOTAL PROTEIN (Dip) NEGATIVE (NEGATIVE); UR UROBILINOGEN (Dip) NEGATIVE (NEGATIVE)
[2017-05-06 21:49] LABS: ALBUMIN 3.5 g/dl (3.3-4.9); ALBUMIN/GLOBULIN RATIO 1.06; BILIRUBIN,INDIRECT 0.5 mg/dl (0-1.1); BILIRUBIN,TOTAL 0.5 mg/dl (0.2-1.3); CREATININE 0.81 mg/dl (0.44-1.00); POTASSIUM 3.8 mmol/L (3.5-5.1); TOTAL PROTEIN 6.8 g/dl (6.1-8.1)
--- NOTE | 2017-05-06 22:39 | ERA ---
ER Documentation Chief Complaint Date/Time DATE: 05/06/17 TIME: 22:35 Chief Complaint wound check- post ceasarian section 5 days ago- inscision bleeding HPI 37-year-old female presenting 5 days status post delivery and tubal ligation. This was the patient's fourth . Patient's only complications during was gestational diabetes. Patient's current chief complaint is pain near the incision site. Also states that hematoma has developed within the past day. Has not been evaluated for this to this point. Denies any discharge, numbness, fever, chills or vaginal pain. Patient has no other complaints and describes no other associated manifestations. ROS All systems reviewed and are negative except as per history of present illness. Medications Home Meds Active Scripts Cephalexin* (Keflex*) 500 Mg Capsule, 500 MG PO QID for 7 Days, CAP Prov:IDA BONILLA PA-C 05/06/17 Discontinued Reported Medications Glyburide* (Glyburide*) 1.25 Mg Tablet, 1.25 MG PO DAILY, #30 TAB 04/26/17 Vits W-Ca,Fe,Fa(<1MG) ( Vitamins) 1 Tab Tablet, 1 TAB PO DAILY 04/18/12 Allergies Allergies: Coded Allergies: No Known Allergy (Verified , NONE, 05/02/17) PMhx/Soc History of Surgery: Yes ( TUBAL LIGATION 05/02/17 ) Anesthesia Reaction: No Hx Neurological Disorder: No Hx Respiratory Disorders: No Hx Cardiac Disorders: No Hx Psychiatric Problems: No Hx Miscellaneous Medical Probl: No Hx Alcohol Use: No Hx Substance Use: No Hx Tobacco Use: No Smoking Status: Never smoker Physical Exam Vitals Vital Signs Date Time Temp Pulse Resp B/P Pulse Ox O2 Delivery O2 Flow Rate FiO2 05/06/17 19:55 97.4 55 20 131/72 100 Physical Exam Const: Obese 37-year-old female no acute distress Head: Atraumatic Eyes: Normal Conjunctiva ENT: Normal External Ears, Nose and Mouth. Neck: Full range of motion..~ No meningismus. Resp: Clear to auscultation bilaterally Cardio: Regular rate and rhythm, no murmurs Abd: Soft, non tender, non distended. Normal bowel sounds Skin: 10-15 cm crescent-shaped hematoma 5-10 cm superior to the incision site. There was sharpie marking this area citing previous induration by the OB nurses. Induration is currently palpated outside of this marking by approximately 1-2 cm. No warmth. No discharge. Back: No midline or flank tenderness Ext: No cyanosis, or edema Neur: Awake and alert Psych: Normal Mood and Affect Result Diagram: 05/06/17210805/06/172108 Results 24 hrs Laboratory Tests Test 05/06/17 21:00 05/06/17 21:09 Urine Color YELLOW Urine Clarity SLIGHTLY CLOUDY Urine pH 6.0 Urine Specific Mcneil 1.016 Urine Ketones NEGATIVEmg/dL Urine Nitrite NEGATIVEmg/dL Urine Bilirubin NEGATIVEmg/dL Urine Urobilinogen NEGATIVEmg/dL Urine Leukocyte Esterase NEGATIVELeu/ul Urine Microscopic RBC 6/HPF Urine Microscopic WBC 4/HPF Urine Squamous Epithelial Cells FEW/HPF Urine Hemoglobin 2+mg/dL Urine Glucose NEGATIVEmg/dL Urine Total Protein NEGATIVEmg/dl White Blood Count 6.910^3/ul Red Blood Count 3.5410^6/ul Hemoglobin 11.4g/dl Hematocrit 33.0% Mean Corpuscular Volume 93.2fl Mean Corpuscular Hemoglobin 32.2pg Mean Corpuscular Hemoglobin Concent 34.5g/dl Red Cell Distribution Width 12.8% Platelet Count 96736^3/UL Mean Platelet Volume 10.7fl Neutrophils % 59.7% Lymphocytes % 29.1% Monocytes % 7.1% Eosinophils % 3.3% Basophils % 0.1% Nucleated Red Blood Cells % 0.0/100WBC Neutrophils # 4.110^3/ul Lymphocytes # 2.010^3/ul Monocytes # 0.510^3/ul Eosinophils # 0.210^3/ul Basophils # 0.010^3/ul Nucleated Red Blood Cells # 0.010^3/ul Sodium Level 139mmol/L Potassium Level 3.8mmol/L Chloride Level 108mmol/L Carbon Dioxide Level 23mmol/L Anion Gap 12 Blood Urea Nitrogen 17mg/dl Creatinine 0.81mg/dl Glucose Level 107mg/dl Calcium Level 9.0mg/dl Total Bilirubin 0.5mg/dl Direct Bilirubin 0.00mg/dl Indirect Bilirubin 0.5mg/dl Aspartate Amino Transf (AST/SGOT) 21IU/L Alanine Aminotransferase (ALT/SGPT) 24IU/L Alkaline Phosphatase 117IU/L Total Protein 6.8g/dl Albumin 3.5g/dl Globulin 3.30g/dl Albumin/Globulin Ratio 1.06 Procedures/MDM 37-year-old female 5 days status post with a chief complaint of pain near the incision site as described in history and physical examination. Induration has spread beyond the margins by the OB nurses. Dr. Wills, the patient's OB, was contacted who was also inspection machine tender; he has advised me to contact the OB inspection machine tender. Will be inspection machine tender came down and evaluated the patient themselves. Ultrasound was ordered, read by the radiologist, and given the following impression: Low abdominal wall edema. Small abdominal wall fluid collection, 1.3 x 0.2 cm, likely reflecting minimal seroma formation CBC: Unremarkable CMP: Unremarkable Urinalysis: Unremarkable Contacting OB on-call once again, they have agreed with management that includes Keflex p.o. 7 days and follow-up in 3 days (Tuesday) with Dr. Alejo. This time I will suspicion for endometritis, ovarian torsion, abscess , other serious bacterial infection, or neurovascular compromise. Most likely diagnosis is minimal cerumen formation as detailed in the ultrasound findings. I have spoke with the patient regarding their condition and future management. They have verbally responded that they understand their status and treatment plan. The patients vitals are stable, and their current condition is appropriate for discharge. The patient will be given discharge instructions with return precautions. Discharge medications: Keflex 500 mg p.o. 7 days, acetaminophen 325 mg every 4- 6 hours as needed for discomfort Departure Diagnosis: Primary Impression: Seroma Additional Impression: Encounter for wound re-check Condition: Stable Additional Instructions: Follow-up with Dr Alejo on Tuesday. Return the the emergency department immediately if symptoms worsen or change. If you have any questions regarding medications, ask your pharmacist or us before you leave. If any adverse reactions occur while taking your medications, discontinue the treatment and return to the emergency department immediately. Take your medications as directed, and complete the entire course of treatment. IDA BONILLA PA-C May 06, 2017 22:39
--- NOTE | 2017-05-06 22:53 | RADRPT ---
PROCEDURE: US Soft Tissue CLINICAL INDICATION: seroma TECHNIQUE: Multiple stapleton scale and color Doppler images were obtained of the abdominal wall status ., and reviewed on a PACS workstation. COMPARISON: None available FINDINGS: There is soft tissue edema seen along the lower abdominal site. There is a small localize d appearing fluid collection within the abdominal wall, measuring 1.3 by 0.2 cm. IMPRESSION: Low abdominal wall edema. Small abdominal wall fluid collection, 1.3 x 0.2 cm, likely reflecting mi nimal seroma formation. RPTAT: HBST .Lalit Carreon MD, MD Date Time Electronically viewed and signed by .Lalit Carreon MD, MD on 05/06/2017 22:53 .T/
[2017-05-06] MEDS ORDERED: CEPH-443 PO (23:08)
== END 2017-05-06 23:39 | disposition home or self-care (01) ==
LOC: FTE 19:54
DX: O90.2 Hematoma of obstetric wound (principal)
CPT/HCPCS: 36415; 76536; 80053; 81001; 85025; Z7502